=== PATIENT | male | born 1985 | race African-American/Black ===

== ENCOUNTER 2021-09-02 20:22 | Inpatient (IN) | payer OTHER ==
[2021-09-02 20:04] VITALS: BMI 21.1
[~2021-09-02 20:22] MED LIST: ACETAMINOPHEN 325 MG TABLET (FP) PO PRN; BISMUTH SUBSALICYLATE 524 MG/30 ML PO PRN; IBUPROFEN 400 MG TABLET (FP) PO PRN; MAG HYDROX/AL HYDROX/SIMETH 30 ML UNIT-DOSE CUP PO PRN; MAGNESIUM CITRATE 300 ML BOTTLE PO PRN; MAGNESIUM HYDROX 2400MG/30ML ORAL SUSPENSION 30 ML CUP PO PRN; MENTHOL/PHENOL 1 EACH UD MM PRN; METHOCARBAMOL 500 MG TABLET PO PRN; NICOTINE POLACRILEX 2 MG GUM BUC PRN; ONDANSETRON *ODT* 4 MG TABLET SL PRN; hydrOXYzine PAMOATE 25 MG CAPSULE (FP) PO PRN
[2021-09-02] MEDS: THIAMINE HCL 100 MG TABLET (FP) PO SCH (21:15)
[2021-09-02] MEDS: MELATONIN 5 MG TABLETS PO SCH (21:15)
[2021-09-02] MEDS ORDERED: diazePAM 5 MG TABLET PO PRN (23:27)
[2021-09-03] MEDS ORDERED: chlordiazePOXIDE HCL 25 MG CAPSULE PO PRN (09:36)
[2021-09-03 10:52] LABS: CALCIUM 8.6 mg/dL (8.5-10.1)
[2021-09-03 10:53] LABS: ALBUMIN 3.4 g/dl (3.4-5.0); BLOOD UREA NITROGEN 11.6 mg/dL (7-18)
[2021-09-03 10:56] LABS: CREATININE 1.1 mg/dL (0.55-1.3)
[2021-09-03 10:58] LABS: BILIRUBIN,TOTAL 0.8 mg/dL (0.2-1)
[2021-09-03 11:04] LABS: HEMOGLOBIN 13.2 GM/dL (11.7-16.9); MCH 32.2 pg (25.7-33.7); MCHC 34.9 g/dl (32.0-35.9); MEAN CELL VOLUME 92.2 fl (80-96); MEAN PLT VOLUME 9.1 fl (7.5-11.1); PLATELET COUNT 230 10^3/uL (134-434); RBC 4.12 M/mm3 (4.00-5.60); RDW 13.3 % (11.9-15.9); WHITE BLOOD COUNT 4.9 K/mm3 (4.0-10.0)
[2021-09-03] MEDS: chlordiazePOXIDE HCL 25 MG CAPSULE PO SCH ×3 (12:09→22:51)
[2021-09-03] MEDS: PRENATAL VITAMINS W/ FOLIC ACID TABLET (FP) PO SCH (12:09)
[2021-09-03] MEDS: THIAMINE HCL 100 MG TABLET (FP) PO SCH (22:51)
[2021-09-03] MEDS: MELATONIN 5 MG TABLETS PO SCH (22:51)
[2021-09-04] MEDS: chlordiazePOXIDE HCL 25 MG CAPSULE PO SCH ×4 (05:48→22:53)
[2021-09-04] MEDS: PRENATAL VITAMINS W/ FOLIC ACID TABLET (FP) PO SCH (10:23)
[2021-09-04] MEDS: THIAMINE HCL 100 MG TABLET (FP) PO SCH (22:52)
[2021-09-04] MEDS: MELATONIN 5 MG TABLETS PO SCH (22:53)
[2021-09-05] MEDS: chlordiazePOXIDE HCL 25 MG CAPSULE PO SCH ×4 (05:29→22:31)
[2021-09-05] MEDS: PRENATAL VITAMINS W/ FOLIC ACID TABLET (FP) PO SCH (10:32)
[2021-09-05] MEDS: THIAMINE HCL 100 MG TABLET (FP) PO SCH (22:31)
[2021-09-05] MEDS: MELATONIN 5 MG TABLETS PO SCH (22:31)
[2021-09-06] MEDS ORDERED: chlordiazePOXIDE HCL 10 MG CAPSULE PO PRN
[2021-09-06] MEDS: chlordiazePOXIDE HCL 10 MG CAPSULE PO SCH ×4 (07:07→22:58)
[2021-09-06] MEDS: PRENATAL VITAMINS W/ FOLIC ACID TABLET (FP) PO SCH (10:16)
[2021-09-06 13:40] LABS: HIV INTERPRETATION NEGATIVE (NEGATIVE)
[2021-09-06] MEDS: THIAMINE HCL 100 MG TABLET (FP) PO SCH (22:57)
[2021-09-06] MEDS: MELATONIN 5 MG TABLETS PO SCH (22:57)
[2021-09-07] MEDS: chlordiazePOXIDE HCL 10 MG CAPSULE PO SCH ×2 (05:41→17:53)
[2021-09-07] MEDS: PRENATAL VITAMINS W/ FOLIC ACID TABLET (FP) PO SCH (10:13)
[2021-09-07] MEDS: THIAMINE HCL 100 MG TABLET (FP) PO SCH (21:19)
[2021-09-07] MEDS: MELATONIN 5 MG TABLETS PO SCH (21:19)
[2021-09-08] MEDS ORDERED: chlordiazePOXIDE HCL 10 MG CAPSULE PO ONE (05:00)
[2021-09-08 09:50] VITALS: BP 110/68; PULSE 68; TEMP 97
[2021-09-08] MEDS: PRENATAL VITAMINS W/ FOLIC ACID TABLET (FP) PO SCH (11:17)
== END 2021-09-08 11:57 | disposition home or self-care (01) | DRG 775 ==
LOC: YASAS 20:22 → Y3N 20:26 → UNDOADMIN 20:26
PROVIDERS: ADMIT Allergy & Immunology; ATTEND Allergy & Immunology
PROC: HZ2ZZZZ Detoxification Services for Substance Abuse Treatment (ICD-10-PCS; principal; 2021-09-02)
DX: F10.230 Alcohol dependence with withdrawal, uncomplicated (principal); F17.210 Nicotine dependence, cigarettes, uncomplicated
CPT/HCPCS: 36415; 80053; 85027; 86780; 87389; C9803; U0003; U0005